=== PATIENT | female | born 1955 | race Caucasian/White ===

== ENCOUNTER 2017-12-03 09:34 | Emergency (ER) | payer MEDICARE, OTHER ==
[~2017-12-03] VITALS: Ht 167.6 cm; Wt 107.5 kg
--- OUTSIDE RECORDS SUMMARY | ~2017-12-03 | XMS | Clinical Summary ---
Demographics + + + | Address | [address] | | | [place] [address] | + + + | Home Phone | | + + + | Preferred Language | Unknown | + + + | Marital Status | | + + + | Buddhist Affiliation | MET | + + + | Race | White | + + + | Ethnic Group | Not or | + + + Author + + + | Author | [facility] | + + + | Organization | [facility] | + + + | Address | Unknown | + + + | Phone | Unavailable | + + + Support + + + + + | Name | Relationship | Address | Phone | + + + + + | Shahbaz Castillo | ECON | [address] | | | | | [place] | | | | | [address] | | + + + + + | Chad Chavez | ECON | [place] | | + + + + + Care Team Providers + +------+ + | Care Urgent Care Physician Name | Role | Phone | + +------+ + | Mateusz Avila MD | PP | | + +------+ + Source Comments ZAINAB is fully live on both EpicCare Ambulatory and EpicCare InPatient.[facility] Allergies + + + + + + | Active Allergy | Reactions | Severity | Noted | Comments | | | | | Date | | + + + + + + | Codeine | Headache | | 08/14/20 | | | | | | 08 | | + + + + + + | Imipramine | Headache | | 08/14/20 | | | | | | 08 | | + + + + + + | Penicillins | Anaphylaxis, Hives, | High | 03/07/20 | | | | Swelling-Facial | | 08 | | + + + + + + | Risperidone | Tachycardia | | 10/18/19 | | | | | | 10 | | + + + + + + | Sulfa (Sulfonamide | Hives, | | 03/07/20 | | | Antibiotics) | Swelling-Facial | | 08 | | + + + + + + Current Medications + + +---------+---------+------+------+-------+ | Prescription | Sig. | Disp. | Refills | Star | End | Statu | | | | | | t | Date | s | | | | | | Date | | | + + +---------+---------+------+------+-------+ | MULTIVITAMIN ORAL | 2 tab by mouth once | | | | | Activ | | | daily, gummi bear | | | | | e | + + +---------+---------+------+------+-------+ | clonazepam 0.5 mg | take 1 tablet (0.5 | | | | | Activ | | Oral Tablet | mg) by oral route 3 | | | | | e | | | times per day as | | | | | | | | needed | | | | | | + + +---------+---------+------+------+-------+ | cyanocobalamin | take one daily under | 100 | 12 | 12/0 | | Activ | | (VITAMIN B-12) 500 | the tongue | | | 01/29 | | e | | mcg Oral Tablet | | | | 08 | | | + + +---------+---------+------+------+-------+ | SPIRONOLACTONE | Take 25 mg by mouth | | | | | Activ | | ORAL | two times daily. | | | | | e | + + +---------+---------+------+------+-------+ | QUEtiapine 50 mg | Take 100 mg by mouth | | | 04/11 | | Activ | | Oral Tablet | two times daily. | | | 01/29 | | e | | | | | | 11 | | | + + +---------+---------+------+------+-------+ | | Take 1 Tab by mouth | | | | | Activ | | HYDROcodone-acetamin | every four hours as | | | | | e | | ophen (NORCO) 5-325 | needed. Not to | | | | | | | mg Oral Tablet | exceed 12 tablets | | | | | | | | per any 24 hour | | | | | | | | period. (Not to | | | | | | | | exceed 4000 mg of | | | | | | | | acetaminophen from | | | | | | | | all products per 24 | | | | | | | | hour period.) | | | | | | + + +---------+---------+------+------+-------+ | ferrous sulfate | Take 325 mg by mouth | | | | | Activ | | (IRON) 325 mg (65 mg | once daily. | | | | | e | | iron) Oral Tablet | | | | | | | + + +---------+---------+------+------+-------+ | Magnesium 500 mg | Take by mouth once | | | | | Activ | | Oral Tablet | daily. | | | | | e | + + +---------+---------+------+------+-------+ | losartan 50 mg | Take 50 mg by mouth | | | | | Activ | | Oral tablet | once daily. | | | | | e | + + +---------+---------+------+------+-------+ | nitroglycerin 0.4 | Place 0.4 mg under | | | | | Activ | | mg Sublingual | tongue every five | | | | | e | | tablet, sublingual | minutes as needed. | | | | | | | | Do not crush. Place | | | | | | | | under tongue and | | | | | | | | allow to dissolve. | | | | | | | | Administer every 5 | | | | | | | | minutes for a | | | | | | | | maximum of 3 doses | | | | | | | | in 15 minutes. | | | | | | + + +---------+---------+------+------+-------+ | gabapentin 600 mg | Take 600 mg by mouth | | | | | Activ | | Oral tablet | four times daily. | | | | | e | + + +---------+---------+------+------+-------+ | DULoxetine 60 mg | Take 60 mg by mouth | | | | | Activ | | Oral capsule,delayed | two times daily. | | | | | e | | release(DR/EC) | | | | | | | + + +---------+---------+------+------+-------+ | famotidine 20 mg | Take 40 mg by mouth | | | | | Activ | | Oral tablet | once daily at | | | | | e | | | bedtime. | | | | | | + + +---------+---------+------+------+-------+ | docusate sodium | Take 200 mg by mouth | | | | | Activ | | 100 mg Oral capsule | two times daily. | | | | | e | + + +---------+---------+------+------+-------+ | ergocalciferol | Take 1 capsule by | 12 | 0 | 12/2 | | Activ | | 50,000 unit oral | mouth every seven | capsule | | 320 | | e | | capsuleIndications: | days. Indications: | | | 14 | | | | Vitamin D Deficiency | VITAMIN D DEFICIENCY | | | | | | + + +---------+---------+------+------+-------+ Active Problems + + + | Problem | Noted Date | + + + | Abdominal hernia | 11/06/2010 | + + + + + | Overview: ICD10 | + + + + + | Postoperative wound infection | 01/19/2009 | + + + | Stricture of intestine | 11/13/2008 | + + + | Gastric bypass status for obesity | 09/25/2008 | + + + | Asthma | | + + + | Morbid obesity (BMI 40.0 or higher) | | + + + | HTN (hypertension) | | + + + | Hyperlipidemia | | + + + | GERD (gastroesophageal reflux disease) | | + + + | Depression with anxiety | | + + + | OA (osteoarthritis) | | + + + | DM (diabetes mellitus) (HCC) | | + + + | PCOS (polycystic ovarian syndrome) | | + + + Encounters +--------+ + + + + | Date | Type | Specialty | Care Team | Description | +--------+ + + + + | 10/01/ | Telephone | | Cathryn Martinez, | Request For Records | | 2016 | | | ACNP | | +--------+ + + + + | 09/16/ | Telephone | | Clinic, Surgery | Request For Records | | 2016 | | | | | +--------+ + + + + from Last 3 Months Immunizations + + + + | Name | Dates Previously Given | Next Due | + + + + | Influenza, split | 11/08/2010 | | + + + + Family History + + +------+ + | Medical History | Relation | Name | Comments | + + +------+ + | Additional Family | Father | | obese | | History | | | | + + +------+ + | Hypertension | Father | | | + + +------+ + | Additional Family | Mother | | obese | | History | | | | + + +------+ + | Diabetes | Mother | | | + + +------+ + | Hypertension | Mother | | | + + +------+ + | Stroke | Mother | | | + + +------+ + + +------+--------+ + | Relation | Name | Status | Comments | + +------+--------+ + | Father | | | | + +------+--------+ + | Mother | | | | + +------+--------+ + Social History + +-------+ +--------+------+ | Tobacco Use | Types | Packs/Day | Years | Date | | | | | Used | | + +-------+ +--------+------+ | Never Smoker | | | | | + +-------+ +--------+------+ + + +---------+ + | Alcohol Use | Drinks/We | oz/Week | Comments | | | ek | | | + + +---------+ + | No | | | | + + +---------+ + + + + | Sex Assigned at | Date Recorded | | | | + + + | Not on file | | + + + Last Filed Vital Signs + + + + | Vital Sign | Reading | Time Taken | + + + + | Blood Pressure | 134/74 | 12/14/2014 11:42 AM PST | + + + + | Pulse | 84 | 12/14/2014 11:42 AM PST | + + + + | Temperature | 36.6 C (97.8 F) | 12/14/2014 11:42 AM PST | + + + + | Respiratory Rate | 16 | 12/14/2014 11:42 AM PST | + + + + | Oxygen Saturation | 99% | 09/30/2011 10:54 AM PST | + + + + | Inhaled Oxygen | - | - | | Concentration | | | + + + + | Weight | 104.1 kg (229 lb 6.4 | 12/14/2014 11:42 AM PST | | | oz) | | + + + + | Height | 167.6 cm (5' 6") | 12/14/2014 11:42 AM PST | + + + + | Body Mass Index | 37.03 | 12/14/2014 11:42 AM PST | + + + + Plan of Treatment + + + + + | Health Maintenance | Due Date | Last Done | Comments | + + + + + | INFLUENZA VACCINE | | 11/08/2010 | | | (FLU SHOT) | 7 | | | + + + + + Results Not on filefrom Last 3 Months
--- OUTSIDE RECORDS SUMMARY | ~2017-12-03 | XMS ---
Demographics + + + | Address | [address] | | | [place] [address] | + + + | Preferred Language | Unknown | + + + | Marital Status | Unknown | + + + | Orthodox Affiliation | Unknown | + + + | Race | Unknown | + + + | Ethnic Group | Unknown | + + + Author + + + | Author | [facility] | + + + | Organization | [facility] | + + + | Address | [address] | | | [place] [address] | + + + | Phone | | + + + Care Team Providers + + + + | Care Prosthetic Assistant Name | Role | Phone | + + + + Unavailable | Unavailable | + + + + PROBLEMS +---------+ + + +--------+ + + | Type | Condition | ICD9-CM | PWU23-FM | Onset | Condition | SNOMED | | | | Code | Code | Dates | Status | Code | +---------+ + + +--------+ + + | Problem | SOB | | R06.02 | | Active | [id number] | | | (shortness | | | | | | | | of | | | | | | | | breath) | | | | | | +---------+ + + +--------+ + + | Problem | Atrophic | N95.2 | | | Active | [id number] | | | vaginitis | | | | | | +---------+ + + +--------+ + + ALLERGIES No Information SOCIAL HISTORY Never Assessed PLAN OF CARE VITAL SIGNS MEDICATIONS + + + + + + + +--------+ | Medicati | Instruct | Dosage | Frequenc | Start | End Date | Duration | Status | | on | ions | | y | Date | | | | + + + + + + + +--------+ | MetroGel | Vaginal | 1 | | 27 Sep, | 22 Sep, | 90 days | Active | | -Vaginal | Daily | applicat | | 2017 | 2018 | | | | 0.75 % | for 10 | ion at | | | | | | | | days | bedtime | | | | | | | | then | | | | | | | | | twice a | | | | | | | | | week for | | | | | | | | | 3 | | | | | | | | | months | | | | | | | + + + + + + + +--------+ RESULTS No Results PROCEDURES No Known procedures IMMUNIZATIONS No Known Immunizations MEDICAL (GENERAL) HISTORY + + + + | Type | Description | Date | + + + + | Medical History | hypertension | | + + + + | Medical History | hypercholesterolemia | | + + + + | Medical History | asthma | | + + + + | Medical History | depression | | + + + + | Medical History | fibromyalgia | | + + + + | Medical History | osteoarthritis | | + + + + | Medical History | diabetes mallitus - diet | | | | controlled at present | | + + + + | Medical History | anemia | | + + + + | Medical History | seasonal allergies | | + + + + | Medical History | headaches | | + + + + | Medical History | blood transfusion x3 | | + + + + | Surgical History | hysterectomy, total with | 1996 | | | BSO | | + + + + | Surgical History | cholecystectomy | 2000 | + + + + | Surgical History | gastric bypass | 2008 | + + + + | Surgical History | repair of esophageal | 2008 | | | sphincter | | + + + + | Surgical History | hernia repair x4 (mesh | 5660-4638 | | | infection/abscess) | | + + + +"
--- OUTSIDE RECORDS SUMMARY | ~2017-12-03 | XMS | Encounter Summary ---
Demographics + + + | Address | [address] | | | [place] [address] | + + + | Home Phone | | + + + | Preferred Language | Unknown | + + + | Marital Status | | + + + | Mormon Affiliation | MET | + + + | Race | White | + + + | Ethnic Group | Not or | + + + Author + + + | Author | [facility] | + + + | Organization | [facility] | + + + | Address | Unknown | + + + | Phone | Unavailable | + + + Support + + + + + | Name | Relationship | Address | Phone | + + + + + | Shahbaz Castillo | [place] | [address] | | | | | [place] | | | | | [address] | | + + + + + | Chad Chavez | ECON | [place] | | + + + + + Care Team Providers + +------+ + | Care Services Rep Name | Role | Phone | + +------+ + | Mateusz Avila MD | PCP | | + +------+ + Reason for Visit + + + | Reason | Comments | + + + | Request For Records | | + + + Encounter Details +--------+ + + + + | Date | Type | Department | Care Team | Description | +--------+ + + + + | 10/01/ | Telephone | Digestive Health | Cathryn Martinez, | Request For Records | | 2017 | | Center [address] | [facility] [address] [facility] | | | | | [place] Mailcode: | [facility] [place] | | | | | [address] for | [place], [place] | | | | | Health and [facility], | [address] | | | | | [address] [place] [address], | [phone] | | | | | [place] [address] | | | | | | [phone] | | | +--------+ + + + + Social History + +-------+ +--------+------+ | [...] on file | | + + + as of this encounter Plan of Treatment Not on fileas of this encounter Visit Diagnoses Not on filein this encounter"
--- OUTSIDE RECORDS SUMMARY | ~2017-12-03 | XMS | Encounter Summary ---
Demographics + + + | Address | [address] | | | [place] [address] | + + + | Home Phone | | + + + | Preferred Language | Unknown | + + + | Marital Status | | + + + | Jain Affiliation | MET | + + + | Race | White | + + + | Ethnic Group | Not or | + + + Author + + + | Author | [facility] | + + + | Organization | [facility] | + + + | Address | Unknown | + + + | Phone | Unavailable | + + + Support + + + + + | Name | Relationship | Address | Phone | + + + + + | Shahbaz Castillo | [place] | [address] | | | | | [place] | | | | | [address] | | + + + + + | Chad Chavez | ECON | [place] | | + + + + + Care Team Providers + +------+ + | Care Fabricator Assembler [employer] Name | Role | Phone | + [...] + + | 09/16/ | Telephone | Digestive Health | Clinic, Surgery | Request For Records | | 2017 | | Center at [facility] 6th | | | | | | Floor [address] | | | | | | [place] Mailcode: [facility] | | | | | | [facility] | | | | | | and [place], [address] | | | | | | floor [place], [place] | | | | | | [address] | | | | | | [phone] | | | +--------+ + + + [...]
--- OUTSIDE RECORDS SUMMARY | ~2017-12-03 | XMS | Encounter Summary ---
Demographics + + + | Address | [address] | | | [place] [address] | + + + | Home Phone | | + + + | Preferred Language | Unknown | + + + | Marital Status | | + + + | Restoration Affiliation | MET | + + + | Race | White | + + + | Ethnic Group | Not or | + + + Author + + + | Author | [facility] | + + + | Organization | [facility] | + + + | Address | Unknown | + + + | Phone | Unavailable | + + + Support + + + + + | Name | Relationship | Address | Phone | + + + + + | Shahbaz Castillo | [place] | [address] | | | | | [place] | | | | | [address] | | + + + + + | Chad Chavez | ECON | [place] | | + + + + + Care Team Providers + +------+ + | Care Pipe Out Worker Name | Role | Phone | + [...] | | Center [address] | [facility] [address] [facility] | | | | | [place] Mailcode: | [place] | | | | | [address] for | [place], [place] | | | | | Health and [facility], | [address] | | | | | [address] [place] [address], | [phone] | | | | | [place] [address] | | | | | | [phone] | | | +--------+ + + + [...]
--- OUTSIDE RECORDS SUMMARY | ~2017-12-03 | XMS | Clinical Summary ---
Demographics + + + | Address | [address] | | | [place] [address] | + + + | Home Phone | | + + + | Preferred Language | Unknown | + + + | Marital Status | | + + + | Yazdanism Affiliation | MET | + + + | Race | White | + + + | Ethnic Group | Not or | + + + Author + + + | Author | [facility] | + + + | Organization | [facility] | + + + [...] [place] | | | | | [address] | | + + + + + | Chad Chavez | ECON | [place] | | + + + + + Care Team Providers + +------+ + | Care Gate Guard Name | Role | Phone | + +------+ + | Mateusz Avila MD | PP | | + +------+ + Source Comments ZAINAB is fully live on both EpicCare Ambulatory and EpicCare InPatient.[facility] Allergies + + + + + + [...]
--- OUTSIDE RECORDS SUMMARY | ~2017-12-03 | XMS | Encounter Summary ---
Demographics + + + | Address | [address] | | | [place] [address] | + + + | Home Phone | | + + + | Preferred Language | Unknown | + + + | Marital Status | | + + + | Amish Affiliation | MET | + + + | Race | White | + + + | Ethnic Group | Not or | + + + Author + + + | Author | [facility] | + + + | Organization | [facility] | + + + | Address | Unknown | + + + | Phone | Unavailable | + + + Support + + + + + | Name | Relationship | Address | Phone | + + + + + | Shahbaz Castillo | [place] | [address] | | | | | [place] | | | | | [address] | | + + + + + | Chad Chavez | ECON | [place] | | + + + + + Care Team Providers + +------+ + | Care Software Sales Consultant Name | Role | Phone | + [...] | 2017 | | Center at [facility] [address]th | | | | | | Floor [address] | | | | | | [place] Mailcode: [facility] | | | | | | [facility] | | | | | | and [place], [address] | | | | | | floor [place], [place] | | | | | | [address] | | | | | | [phone] | | | +--------+ + + + [...]
[~2017-12-03 09:34] MED LIST: ALBUTEROL2.5 MG/3 M INH; ATROVENT HFA12.9 GM INH; AZITHROMYCIN250 MG PO; CLONAZEPAM0.5 MG PO; DULOXETINE HCL60 MG PO; ESTRACE42.5 GM VAGINAL; ESTRADIOL1 MG PO; FAMOTIDINE40 MG PO; FLAGYL500 MG PO; FLOVENT DISKUS50 MCG INH; FLOVENT HFA12 GM INH; GABAPENTIN600 MG PO; HYDROCHLOROTH12.5 MG PO; HYDROCODON-ACE1 EA10 PO; INSPIRATION1 EACH MISC; LOSARTAN POTASS50 MG PO; MELOXICAM7.5 MG PO; MONTELUKAST SOD10 MG PO; PREDNISONE20 MG PO; PREDNISONE5 MG PO; QUETIAPINE FUM100 MG PO; SPIRONOLACTONE25 MG PO; ZITHROMAX250 MG PO
[2017-12-03] MEDS ORDERED: OXCARBAZEPINE150 MG PO (09:53)
[2017-12-03] MEDS ORDERED: BACLOFEN10 MG PO (09:54)
== END 2017-12-03 11:34 | disposition home or self-care (01) ==
LOC: ED 09:34
DX: S00.12XA Contusion of left eyelid and periocular area, initial encounter (principal); S09.90XA Unspecified injury of head, initial encounter; J44.9 Chronic obstructive pulmonary disease, unspecified; E11.9 Type 2 diabetes mellitus without complications; F32.9 Major depressive disorder, single episode, unspecified; Z98.84 Bariatric surgery status; Z95.5 Presence of coronary angioplasty implant and graft; Z88.1 Allergy status to other antibiotic agents; Z88.2 Allergy status to sulfonamides; Z88.5 Allergy status to narcotic agent; Z88.0 Allergy status to penicillin; Z88.8 Allergy status to other drugs, medicaments and biological substances; Z79.899 Other long term (current) drug therapy; W18.30XA Fall on same level, unspecified, initial encounter
CPT/HCPCS: 70450; 99284